=== PATIENT | female | born 1995 | race African-American/Black ===

== ENCOUNTER 2024-03-04 09:21 | Emergency (ER) | payer SELFPAY ==
[~2024-03-04] VITALS: Ht 160 cm; Wt 51.0 kg
[2024-03-04 09:30] VITALS: O2SAT 100
[2024-03-04] MEDS: ONDANSETRON HCL 4MG/2ML INJ IV ONE (10:00)
[2024-03-04 11:15] LABS: BASOPHILS % 0.5 % (0.0-2.0); EOSINOPHILS % 0.1 % (0.0-5.0); HEMATOCRIT. 43.2 % (36.0-48.0); HEMOGLOBIN. 14.2 g/dL (12.0-16.0); LYMPHOCYTES % 17.7 % (20.0-50.0); MEAN CORPUSCULAR HEMOGLOBIN 30.6 pg (28.0-32.0); MEAN CORPUSCULAR HGB CONC 32.9 g/dL (31.0-37.0); MEAN CORPUSCULAR VOLUME 93.1 fL (81.0-99.0); MEAN PLATELET VOLUME 7.4 fl (7.4-10.4); MONOCYTES % 3.6 % (2.0-8.0); NEUTROPHILS % 78.1 % (40.0-76.0); PLATELET 280 x1000/uL (130-400); RED BLOOD CELL COUNT 4.64 mill/uL (4.2-5.4); RED CELL DISTRIBUTION WIDTH 12.8 % (11.6-14.6); WHITE BLOOD COUNT 6.7 x1000/uL (4.5-11.0)
[2024-03-04] MEDS: LACTATED RINGERS 1,000 ML IV SCH (11:17)
[2024-03-04 11:22] LABS: CHLORIDE 110 mEq/L (98-107); POTASSIUM 3.5 mEq/L (3.5-5.1); SODIUM 144 mEq/L (136-145)
[2024-03-04 11:23] LABS: CARBON DIOXIDE 27 mEq/L (21-32)
[2024-03-04 11:28] LABS: CREATININE 0.8 mg/dL (0.6-1.0); GLUCOSE 102 mg/dL (70-105); UREA NITROGEN BLOOD 9 mg/dL (9-23)
[2024-03-04 11:30] LABS: ALANINE AMINOTRANSFERASE 24 IU/L (10-49); ALBUMIN 4.6 g/dL (3.2-4.8); ASPARTATE AMINOTRANSFERASE 26 IU/L (<34); BILIRUBIN TOTAL 0.7 mg/dL (0.1-1.0); HCG SCREEN NEGATIVE; PROTEIN TOTAL 7.3 g/dL (6.0-8.3)
[2024-03-04] MEDS ORDERED: ONDA4TAB11 PO (11:52)
[2024-03-04 13:02] VITALS: BP 118/74; PULSE 71; RESP 20; TEMP 98.3
== END 2024-03-04 13:02 | disposition home or self-care (01) ==
LOC: ER 09:29
DX: R11.2 Nausea with vomiting, unspecified (principal); R19.7 Diarrhea, unspecified
CPT/HCPCS: 80053; 81025; 84703; 83690; 85025; 36415; 96360; 99283; Z7610 ×2